=== PATIENT | male | born 1980 | race Caucasian/White ===

== ENCOUNTER → 2017-07-19 | Outpatient (CLI) | payer OTHER ==
--- NOTE | 2017-07-19 11:58 | REP ---
LUMBAR SPINE RADIOGRAPHS: Five views. HISTORY: Low back pain. FINDINGS: Five views of the lumbar spine show preserved vertebral body heights. There is disc space narrowing indicating degenerative disc disease at L3-4 and L4-5. Discogenic spurring is seen at these two levels as well as early spurring at L2-3. Pedicles and posterior elements are intact. There is no evidence of spondylolysis or spondylolisthesis. Sacrum and SI joints are unremarkable. There is a minimal dextroconvex curve on the frontal radiograph in the upper lumbar spine. IMPRESSION: Degenerative disc changes at the L3-4 and L4-5. No acute abnormality. Signed by Mahad Elizalde MD 07/19/2017 12:39 P
== END ==
LOC: M RAD 09:19
PROVIDERS: ATTEND Surgery
DX: M54.5 Low back pain (principal)